=== PATIENT | male | born 1970 | race Hispanic/Latino ===

== ENCOUNTER 2018-10-10 11:08 | Emergency (ER) | payer OTHER ==
[2018-10-10 11:37] VITALS: TEMP 98; BMI 27.8
--- NOTE | 2018-10-10 12:33 | ED PDOC ---
Lower Extremity Pain/Injury Time Seen by Provider: 10/10/18 12:28 Chief Complaint (Nursing): Lower Extremity Problem/Injury Chief Complaint (Provider): Lower Extremity Problem/Injury History Per: Patient History/Exam Limitations: no limitations Onset/Duration Of Symptoms: Days (3x days, has improved) Current Symptoms Are (Timing): Better Severity: Moderate Additional Complaint(s): 48 year old male with a history of multiple sclerosis, epilepsy, and DVT (10x years ago due to inactivity) presents to the ED for an evaluation of atraumatic left leg pain. Patient reports that 3x days ago, he started having pain and swelling to the anterior aspect of the left calf with some improvement of pain since onset. Patient reports having problems with varicose veins. Patient denies having fevers and chills. PMD: [facility] Past Medical History Reviewed: Historical Data, Nursing Documentation, Vital Signs Vital Signs: Last Vital Signs Temp 98 F 10/10/18 11:36 Pulse 54 L 10/10/18 11:36 Resp 16 10/10/18 11:36 BP 151/93 H 10/10/18 11:36 Pulse Ox 97 10/10/18 11:36 LEO Report Viewed: Yes - Medical History PMH: Multiple Sclerosis, Seizures (epilepsy) Denies: HTN, Hypercholesterolemia, Hyperlipidemia Other PMH: DVT in 2007 - Family History Family History: States: MA (no family history of early MA or sudden ) - Social History Current smoker - smoking cessation education provided: No Alcohol: Occasional Drugs: Denies - Immunization History Hx Tetanus Toxoid Vaccination: No Hx Influenza Vaccination: No Hx Pneumococcal Vaccination: No - Home Medications Home Medications: Ambulatory Orders Medication Instructions Recorded Dilantin 400 mg PO HS 07/26/13 Fingolimod HCl [Gilenya] 0.5 mg PO DAILY 06/04/17 RX: Clindamycin [Cleocin] 300 mg PO QID #28 cap 06/04/17 Aspirin [Aspirin EC] 325 mg PO DAILY #14 tablet. 10/10/18 - Allergies Allergies/Adverse Reactions: Allergies Allergy/AdvReac Type Severity Reaction Status Date / Time erythromycin base Allergy RASH Verified 06/04/17 21:04 Review of Systems ROS Statement: Except As Marked, All Systems Reviewed And Found Negative Constitutional: Negative for: Fever, Chills Musculoskeletal: Positive for: Leg Pain (pain and swelling of anterior aspect of left calf) Physical Exam - Reviewed Nursing Documentation Reviewed: Yes Vital Signs Reviewed: Yes - Physical Exam Appears: Positive for: Well, Non-toxic, No Acute Distress Head Exam: Positive for: ATRAUMATIC, NORMOCEPHALIC Skin: Positive for: Normal Color, Warm, Dry Cardiovascular/Chest: Positive for: Regular Rate, Rhythm Respiratory: Positive for: Normal Breath Sounds Extremity: Positive for: Tenderness (mild swelling and tenderness to anterior left leg. Moderate varicose veins noted. (-) signs of cellulitis). Negative for: Calf Tenderness Neurologic/Psych: Positive for: Alert, Oriented (3x) - ECG O2 Sat by Pulse Oximetry: 97 (RA) Pulse Ox Interpretation: Normal - CT Scan/US US duplex lower etrm vein left Other Rad Studies (CT/US): Read By Radiologist, Radiology Report Reviewed (see MDM note) - Progress ED Course And Treament: D/W YOHANA MONZON. PATIENT TO FOLLOW UP OUTPATIENT TOMORROW. Medical Decision Making Medical Decision Makin:28 Initial impression: 48 year old male with atraumatic leg pain and swelling. Initial plan: * US duplex lower extrm vein left with soft tissue of anterior left leg * reevaluation 14:45 US duplex lower exrm vein left read and reviewed by radiologist FINDINGS: 2-D, color and duplex Doppler analysis of the lower extremity venous circulation using routine protocol from the femoral veins through the popliteal veins. Venous compressibility: Normal. Flow and augmentation patterns: Normal. Visualized veins upper third of calf: Normal. Fox cyst: None. Please note that there are superficial varicose veins along the anterior aspect of the tibia with internal echoes demonstrating either slow flow or thrombosis. No flow is demonstrated on color Doppler interrogation but this is likely not adjusted to detect very slow venous flow. IMPRESSION: No evidence of deep venous thrombosis in the left lower extremity. Anterior superficial varicose veins, possibly thrombosed (versus slow flow). --------- -------- Scribe Attestation: Documented byAditi Robles, acting as a scribe for Roseanne Alanis PA-C. Provider Scribe Attestation: All medical record entries made by the Scribe were at my direction and personally dictated by me. I have reviewed the chart and agree that the record accurately reflects my personal performance of the history, physical exam, medical decision making, and the department course for this patient. I have also personally directed, reviewed, and agree with the discharge instructions and d isposition. Disposition - Clinical Impression Clinical Impression: Acute superficial venous thrombosis of lower extremity - Patient ED Disposition Is Patient to be Admitted: No - Disposition Disposition: Routine/Home Disposition Time: 14:55 Condition: FAIR Prescriptions: Aspirin [Aspirin EC] 325 mg PO DAILY #14 tablet. Instructions: Superficial Phlebitis Forms: [facility] ED School/Work Excuse
--- NOTE | 2018-10-10 14:48 | US ---
Date of service: 10/10/2018 HISTORY: left leg pain. PRIORS: None. FINDINGS: 2-D, color and duplex Doppler analysis of the lower extremity venous circulation using routine protocol from the femoral veins through the popliteal veins. Venous compressibility: Normal. Flow and augmentation patterns: Normal. Visualized veins upper third of calf: Normal. Fox cyst: None. Please note that there are superficial varicose veins along the anterior aspect of the tibia with internal echoes demonstrating either slow flow or thrombosis. No flow is demonstrated on color Doppler interrogation but this is likely not adjusted to detect very slow venous flow. IMPRESSION: No evidence of deep venous thrombosis in the left lower extremity. Anterior superficial varicose veins, possibly thrombosed (versus slow flow).
[2018-10-10 15:34] VITALS: BP 130/78; PULSE 60; RESP 18
[2018-10-10 19:48] VITALS: O2SAT 97
== END 2018-10-10 15:30 | disposition home or self-care (01) ==
LOC: H.ER 11:08
DX: I82.812 Embolism and thrombosis of superficial veins of left lower extremity (principal); G35 Multiple sclerosis; G40.909 Epilepsy, unspecified, not intractable, without status epilepticus; Z86.718 Personal history of other venous thrombosis and embolism; Z88.1 Allergy status to other antibiotic agents; Z79.82 Long term (current) use of aspirin